=== PATIENT | female | born 1950 | race African-American/Black ===

== ENCOUNTER → 2019-08-03 | Outpatient (CLI) | payer SELFPAY ==
--- NOTE | 2019-08-03 17:29 | PCVCIMAG ---
APPROVED REPORT Study performed: 08/03/2019 10:30:35 EXAM: Comprehensive 2D, Doppler, and color-flow Echocardiogram Patient Location: Echo lab Room #: 3Status: routine BSA: 1.75 HR: 62 bpmBP: 144/72 mmHg Rhythm: NSR Other Information Study Quality: Adequate Indications Murmur Dyspnea 2D Dimensions IVSd: 9.03 (7-11mm)LVOT Diam: 18.00 (18-24mm) LVDd: 38.94 mm PWd: 9.44 (7-11mm)Ascending Ao: 31.24 (22-36mm) LVDs: 23.43 (25-40mm) Left Atrium: 34.13 (27-40mm) Aortic Root: 24.76 mm LV Single Plane 4CH: 73.10 % LV Single Plane 2CH: 74.71 % Biplane EF: 73.8 % Volumes Left Atrial Volume (Systole) Single Plane 4CH: 49.41 mLSingle Plane 2CH: 39.00 mL LA ESV Index: 25.00 mL/m2 Aortic Valve AoV Peak Chuck.: 1.68 m/s AO Peak Gr.: 11.29 mmHgLVOT Max P.16 mmHg LVOT Max V: 1.24 m/s DAYSI Vmax: 1.85 cm2 Mitral Valve E/A Ratio: 0.7 MV Decel. Time: 292.90 ms MV E Max Chuck.: 0.89 m/s MV A Chuck.: 1.20 m/s IVRT: 65.74 ms TDI E/Lateral E': 12.71E/Medial E': 14.83 Medial E' Chuck.: 0.06 m/s Lateral E' Chuck.: 0.07 m/s Pulmonary Valve PV Peak Chuck.: 1.54 m/sPV Peak Gr.: 9.46 mmHg Pulmonary Vein P Vein S: 0.60 m/sP Vein A: 0.31 m/s P Vein D: 0.37 m/sP Vein A Dur.: 103.8 msec P Vein S/D Ratio: 1.62 Tricuspid Valve TR Peak Chuck.: 2.87 m/sRAP Estimate: 7.00 mmHg TR Peak Gr.: 33.02 mmHg PA Pressure: 40.00 mmHg Left Ventricle The left ventricle is normal size. There is normal LV segmental wall motion. There is normal left ventricular wall thickness. Left ventricular systolic function is normal. The left ventricular ejection fraction is within the normal range. LVEF is 70%. Mild diastolic dysfunction is present (impaired relaxation pattern). Right Ventricle The right ventricle is normal size. The right ventricular systolic function is normal. Atria The left atrium size is normal. The right atrium size is normal. Aortic Valve The aortic valve is normal in structure. Trace aortic regurgitation. There is no aortic valvular stenosis. Mitral Valve The mitral valve is normal in structure. There is no mitral valve regurgitation noted. No evidence of mitral valve stenosis. Tricuspid Valve The tricuspid valve is normal in structure. Mild tricuspid regurgitation. Pulmonary artery pressure is 40 mmHg. Pulmonic Valve The pulmonary valve is normal in structure. There is no pulmonic valvular regurgitation. Great Vessels The aortic root is normal in size. The ascending aorta is normal in size. IVC is normal in size and collapses >50% with inspiration. Pericardium There is no pericardial effusion. <Conclusion> The left ventricle is normal size. There is normal left ventricular wall thickness. LVEF is 70%. Mild diastolic dysfunction is present (impaired relaxation pattern). The right ventricle is normal size. The left atrium size is normal. Trace aortic regurgitation. There is no mitral valve regurgitation noted. Mild tricuspid regurgitation. Pulmonary artery pressure is 40 mmHg. The aortic root is normal in size. There is no pericardial effusion.
== END | disposition home or self-care (01) ==
LOC: PCVCIMAG 10:29
PROVIDERS: ATTEND Internal Medicine
DX: I07.1 Rheumatic tricuspid insufficiency (principal)
CPT/HCPCS: 93306